=== PATIENT | female | born 1985 | race Caucasian/White ===

== ENCOUNTER 2022-01-17 13:19 | Outpatient (CLI) | payer OTHER, SELFPAY ==
[2022-01-17 22:38] LABS: Chloride* 99 mmol/L (96-114)
[2022-01-17 22:39] LABS: Albumin* 5.4 g/dL (3.3-5.0); Sodium* 136 mmol/L (135-149)
[2022-01-17 22:40] LABS: Potassium* 4.3 mmol/L (3.6-5.1)
[2022-01-17 22:41] LABS: Cholesterol* 181 mg/dL (90-199)
[2022-01-17 22:42] LABS: Alanine Aminotransferase* 19 U/L (4-35); Alkaline Phosphatase* 77 U/L (40-150); Bilirubin Total* 0.6 mg/dL (0.1-1.5); Blood Urea Nitrogen* 13 mg/dL (5-24); Carbon Dioxide* 25 mmol/L (20-32); Creatinine* 0.7 mg/dL (0.5-1.5); Estimated Glomerular Filt Rate 114 ml/min; Glucose* 79 mg/dL (60-115); Total Protein* 8.1 g/dL (6.0-8.3); Triglycerides* 57 mg/dL (40-149)
[2022-01-17 22:43] LABS: HDL Cholesterol* 57 mg/dL (>=50); LDL Cholesterol Calculated 113 mg/dL (<100)
[2022-01-17 23:15] LABS: Aspartate Amino Transferase* 28 U/L (12-35)
[2022-01-17 23:21] LABS: Hepatitis C Virus Antibody* Negative (Negative)
== END 2022-01-17 13:20 | disposition home or self-care (01) ==
PROVIDERS: PCP Physician Assistant Medical; Visit Provider Family Medicine
DX: Z01.419 Encounter for gynecological examination (general) (routine) without abnormal findings (principal); Z13.6 Encounter for screening for cardiovascular disorders; Z11.59 Encounter for screening for other viral diseases
CPT/HCPCS: 80053; 80061; 86803

== ENCOUNTER 2023-02-24 08:43 | Outpatient (CLI) | payer OTHER, SELFPAY | END 2023-02-24 08:44 | disposition home or self-care (01) | LOC: NFLDREF 02-26 07:25 | PROVIDERS: PCP Physician Assistant Medical; Referring Provider Physician Assistant Medical; Visit Provider Registered Nurse | DX: Z51.81 Encounter for therapeutic drug level monitoring (principal) | CPT/HCPCS: 80053 ==

== ENCOUNTER 2024-02-16 08:18 | Outpatient (CLI) | payer OTHER, SELFPAY | END 2024-02-16 08:19 | disposition home or self-care (01) | PROVIDERS: PCP Family Medicine; Visit Provider Family Medicine | DX: Z00.00 Encounter for general adult medical examination without abnormal findings (principal); L70.9 Acne, unspecified; F41.9 Anxiety disorder, unspecified | CPT/HCPCS: 80053 ==

== ENCOUNTER 2024-12-31 15:09 | Outpatient (CLI) | payer OTHER, SELFPAY ==
--- NOTE | 2024-12-31 15:30 | CRLHL7_ITS ---
For Patients: As a result of the 21st Century Cures Act, medical imaging exams and procedure reports are released immediately into your electronic medical record. You may view this report before your referring provider. If you have questions, please contact your health care provider. CLINICAL INDICATION: Peroneal tendinitis. COMPARISON IMAGING STUDIES: Radiographs 11/02/2024. TECHNICAL: Non-contrast MR of the left ankle. Axial, sagittal and coronal T1, PD, PDFS and STIR images. 1.5 Judith MR scanner. FINDINGS: OSSEOUS STRUCTURES: There is an os peroneum which appears abnormal with both sclerosis and internal bone marrow edema. Adjacent soft tissue edema is present. There appears to be a subtle linear defect within the mid aspect of the ossicle on sagittal T1 image number 19 of series 7. an os trigonum is present with mild internal bone marrow edema. No widening of the synchondrosis. JOINT SPACES: The ankle joint space is maintained. There is a small posterior subtalar joint effusion. The talar-navicular and calcaneocuboid joint spaces are maintained. Joint spaces within the visualized midfoot and at the midfoot-forefoot junction are maintained. LIGAMENTS: Syndesmotic Ligaments: The anterior and posterior syndesmotic ligaments are intact. Lateral Ligaments: The anterior talofibular, calcaneofibular and posterior talofibular ligaments are intact. Medial Ligaments: The superficial and deep components of the deltoid ligament complex are maintained. Spring Ligaments: Intact. Lisfranc ligament complex: Intact. TENDONS: Flexor Tendons: The posterior tibial, flexor digitorum longus and flexor hallucis longus tendons are intact. Extensor Tendons: The anterior extensor tendons are intact. Achilles Tendon: Intact. Peroneal Tendons: As above, there is an abnormal os peroneum within the peroneus longus tendon with sclerosis and bone marrow edema. Small linear defect is suspected within the mid ossicle. Adjacent soft tissue edema. Tendinosis of the peroneus longus tendon just proximal to the ossicle. No high-grade tendon tear. The peroneus brevis tendon is intact. TARSAL TUNNEL: The soft tissues of the tarsal tunnel are normal without mass or fluid collection. No abnormality along the course of the medial or lateral plantar nerves. SINUS TARSI: The structures of the sinus tarsi appear normal. No disruption of the interosseous ligaments or significant effacement of fat. PLANTAR SOFT TISSUES: Mild non insertional thickening of the central band of the plantar fascia at the distal calcaneal level. No plantar fascial tear. OTHER FINDINGS: Subcutaneous edema is present. IMPRESSION: 1. Abnormal os peroneum with both sclerosis and internal bone marrow edema. Suspected linear defect which may relate either to sequelae of fracture or bipartite nature. Adjacent soft tissue edema. Tendinosis of the peroneus longus tendon just proximal to the ossicle. 2. Os trigonum with mild internal bone marrow edema but no disruption of its synchondrosis. 3. The ankle joint space and ligaments are intact. 4. Small posterior subtalar joint effusion. 5. Mild non insertional thickening of the proximal central band of the plantar fascia at the distal calcaneal level. Dictated by Mohan Ruiz MD @ 01/03/2025 10:23:53 AM (Electronically Signed)
== END 2024-12-31 15:10 | disposition home or self-care (01) ==
LOC: MRI 15:09
PROVIDERS: PCP Family Medicine; Visit Provider Podiatrist
DX: M76.72 Peroneal tendinitis, left leg (principal); M25.472 Effusion, left ankle
CPT/HCPCS: 73721

== ENCOUNTER 2025-01-20 16:01 | Outpatient (CLI) | payer OTHER, SELFPAY | END 2025-01-20 16:02 | disposition home or self-care (01) | PROVIDERS: PCP Family Medicine; Visit Provider Family Medicine | DX: Z00.00 Encounter for general adult medical examination without abnormal findings (principal) | CPT/HCPCS: 80053; 80061 ==

== ENCOUNTER 2025-02-16 08:47 | Day surgery (SDC) | payer OTHER, SELFPAY ==
[2025-02-16] VITALS (12 sets, daily range): BP systolic 114–132; BP diastolic 66–90; PULSE 75–87; RESP 14–18; TEMP 36.4–37.5; O2SAT 97–99; BMI 34.5
[2025-02-16] MEDS: LACTATED RINGERS 1000 ML 1,000 ML 100 ML IV (09:25)
[2025-02-16] MEDS: SODIUM CHLORIDE 0.9 % (FLUSH) 10 ML SYRINGE IVF (09:25)
--- NOTE | 2025-02-16 10:05 | SUR.PREOP ---
TIME?OUT:?1005 PT/RN/MDA?VERIFICATION?OF?SURGICAL?SITE,?PROCEDURE,?AND?CONSENT OBTAINED?PRIOR?TO?INVASIVE?PROCEDURE.
[2025-02-16] MEDS: MIDAZOLAM HCL 1 MG/ML inj IVP (10:06)
--- NOTE | 2025-02-16 11:10 | P.ANES_ITS ---
Anesthesia Charges Start Date/Time Anesthesia Start Date: 02/16/25 Anesthesia Start Time: 10:24 Stop Date/Time Anesthesia Stop Date: 02/16/25 Anesthesia Stop Time: 11:50 Coding CPT Codes CPT Codes: ANESTH LOWER LEG BONE SURG - 30200 ([id number]) P2 - PATIENT W/MILD SYST DISEASE, QK - NATIONAL SALES CONSULTANT 2-4 CNCRNT ANES PROC, QX - TELECOM NETWORK MANAGER SVC W/ MD MED DIRECTION
--- NOTE | 2025-02-16 11:10 | P.NB_ITS ---
Nerve Block Nerve Block Time Seen by Provider: 10:05 Date Seen: 02/16/25 Type of block requested by surgeon for post-operative analgesia: popliteal Side: left Time out performed: Yes Verification of patient name: Yes Verification of date of : Yes Site marking: site marked Name of person performing procedure: Justin Continuous monitoring Was continuous monitoring of O2 sat, B/P, monitor and storage bin tender, recorded every 15 minutes?: Yes Procedure Checklist: sterile prep, needles and gloves Ultrasound guided. Images saved: Yes Medications given in 5ml increments after negative aspiration: Marcaine %: 0.25 mL: 13 and Exparel mL: 7 Patient tolerated procedure well: Yes Additional comments: Needle noted adjacent to nerve Block Charges Block Charge (with Pro Fee): Sciatic Nerve Use of Ultrasound Machine for Block: Yes- US Guidance/pain block
--- NOTE | 2025-02-16 11:10 | W.ANESCHARGE ---
Anesthesia Charges Start Date/Time Anesthesia Start Date: 02/16/25 Anesthesia Start Time: 10:24 Stop Date/Time Anesthesia Stop Date: 02/16/25 Anesthesia Stop Time: 11:50 Coding CPT Codes CPT Codes: ANESTH LOWER LEG BONE SURG - 75738 ([id number]) P2 - PATIENT W/MILD SYST DISEASE, QK - FLORIST 2-4 CNCRNT ANES PROC, QX - GAS SCRUBBER OPERATOR SVC W/ MD MED DIRECTION
--- NOTE | 2025-02-16 11:11 | P.NB_ITS ---
Nerve Block Nerve Block Time Seen by Provider: 10:05 Date Seen: 02/16/25 Type of block requested by surgeon for post-operative analgesia: adductor canal Side: left Time out performed: Yes Verification of patient name: Yes Verification of date of : Yes Site marking: site marked Name of person performing procedure: Justin Continuous monitoring Was continuous monitoring of O2 sat, B/P, certified novell administrator, recorded every 15 minutes?: Yes Procedure Checklist: sterile prep, needles and gloves Ultrasound guided. Images saved: Yes Medications given in 5ml increments after negative aspiration: Marcaine %: 0.25 mL: 12 Needle gauge: 20 and Exparel mL: 3 Patient tolerated procedure well: Yes Block Charges Block Charge (with Pro Fee): Femoral Nerve Use of Ultrasound Machine for Block: Yes- US Guidance/pain block
--- NOTE | 2025-02-16 11:50 | P.ANES_ITS ---
Anesthesia Charges Start Date/Time Anesthesia Start Date: 02/16/25 Anesthesia Start Time: 10:24 Stop Date/Time Anesthesia Stop Date: 02/16/25 Anesthesia Stop Time: 11:50 Coding CPT Codes CPT Codes: ANESTH LOWER LEG BONE SURG - 59545 ([id number]) P2 - PATIENT W/MILD SYST DISEASE, QK - QUARTER SECTION IRONER 2-4 CNCRNT ANES PROC, QX - RN CARDIAC REHAB SVC W/ MD MED DIRECTION
--- NOTE | 2025-02-16 11:50 | W.ANESCHARGE ---
Anesthesia Charges Start Date/Time Anesthesia Start Date: 02/16/25 Anesthesia Start Time: 10:24 Stop Date/Time Anesthesia Stop Date: 02/16/25 Anesthesia Stop Time: 11:50 Coding CPT Codes CPT Codes: ANESTH LOWER LEG BONE SURG - 76402 ([id number]) P2 - PATIENT W/MILD SYST DISEASE, QK - HVAC RESIDENTIAL SERVICE TECHNICIAN 2-4 CNCRNT ANES PROC, QX - SERVICE WRITER SVC W/ MD MED DIRECTION
--- NOTE | 2025-02-16 11:58 | W.PODPROC_ITS ---
Date of Procedure: 02/16/25 Time Seen by Provider: 11:58 Surgeon: Natalia Odonnell DPM Co-Surgeon: Shankar Sheriff DPM Pre-op Diagnosis: 1. Fracture os peroneum left foot 2. Peroneal tenosynovitis left foot Post-op Diagnosis: 1. Fracture os peroneum left foot 2. Peroneal tenosynovitis left foot Type of Procedure: 1. Excision of os peroneum left foot 2. Peroneus longus tendon transfer left foot 3. Peroneal tendon tenosynovectomy left foot 4. Posterior Splint application left lower extremity Procedure Description: The patient was identified prior to being brought into the operating room using their name and date of as identifiers. The intended surgical care plan was again reviewed in detail with the patient as well as the rationale for the surgery, the most common risks, complications, and expected recovery course. The patient was given the opportunity to ask questions which were answered to the best of our ability. The patient ultimately voiced no questions or concerns and agreed to proceed forward with the surgery as planned. Under mild sedation the patient was brought from the pre-operative holding area to the operating room and placed on the operating table in a supine position. A time out and briefing were performed per operating room protocol to confirm the correct patient, procedure and location. A well padded pneumatic tourniquet was then placed on the operative thigh. The operative lower extremity was then s crubbed, prepped and draped in the normal sterile fashion. The operative lower extremity was then elevated for exsanguination and the tourniquet was inflated to 325 mmHg. A longitudinal incision was made over the peroneal tendon sheath along the lateral aspect of the foot to the distal fibula. Sharp dissection was carried down through the subcutaneous tissues, taking care to protect the sural nerve. This was visible within the inferior incision and the nerve was injected with 0.3cc of 4mg Dex. The peroneal tendon sheath was incised, exposing both the peroneus longus and brevis tendons. Tenosynovitis was identified along the peroneus longus tendon and resected in total. The os peroneum was immediately identified within the peroneus longus tendon and was fragmented. The os peroneum was excised in its entirety, and confirmed with intraoperative fluoro imaging. The surrounding peroneus longus tendon edges were inspected. Approximately 75% of the peroneus longus tendon substance was found to be degenerative or nonviable, with only an estimated 25% of structurally sound tendon remaining. The nonviable tendon tissue was debrided back to healthy, bleeding tendon ends. Given the insufficient remaining tendon for primary repair, attention was turned to reconstructing function through a tendon transfer. The peroneus brevis tendon was exposed and noted to be intact and of good quality. The remaining viable proximal segment of the peroneus longus tendon was laid adjacent to the peroneus brevis tendon in preparation for a [id number]-we-rlyt anastomosis. Using absorbable suture, a series of locking stitches were placed, securing the peroneus longus to the peroneus brevis with excellent coaptation and tension. The repair was tested through passive ankle motion, demonstrating smooth gliding and stable configuration without gapping. The peroneal sheath was repaired loosely to avoid postoperative stenosis. Hemostasis was achieved, the wound was irrigated with sterile saline, and the in cision was closed in layers using absorbable sutures for the deep tissues and nylon for the skin. A postoperative dressing of xeroform, fluff sponges, ABDs, webril, Kerlix and an anthony bandage was applied to the patient's operative lower extremity. A posterior splint was then applied to the patient's operative extremity. The patient appeared to tolerate both the procedure and anesthesia well. The patient was transferred from the operating room to the post anesthesia care unit with vital signs stable and vascular status intact to the operative lower extremity. All sponge and instrument counts were correct at the completion of the surgery as well as prior to closure of deep tissue and skin. Anesthesia: GETA and regional Hemostasis: thigh (56 min ) Estimated blood loss (mL): 15 Provider Operated C-arm: operated mini c for surgical purposes, obtained 1 image and a total of 4 sec of fluoro time Implants: none Specimens: none sent Disposition: same day
--- NOTE | 2025-02-16 12:11 | SUR.OPER ---
0.35mL OF DEXAMETHASONE (4MG/mL) INJECTED INTO THE OPERATIVE SITE BY DR. ARVIZU (@11:20)
[2025-02-16] MEDS: ONDANSETRON 2 MG/ML inj 4 MG IVP (13:00)
--- NOTE | 2025-02-16 13:04 | SUR.PHASEII ---
Patient with PT in SDS room.
== END 2025-02-16 13:31 | disposition home or self-care (01) ==
LOC: OR 08:50
PROVIDERS: PCP Family Medicine; Visit Provider Podiatrist
PROC: (CPT 27675; principal; 2025-02-16 10:15)
DX: S92.812A Other fracture of left foot, initial encounter for closed fracture (principal); M65.872 Other synovitis and tenosynovitis, left ankle and foot; M76.72 Peroneal tendinitis, left leg; G89.18 Other acute postprocedural pain
CPT/HCPCS: 28122; 27680; 27658; 01480; 64445; 64447; 73620; 76000; 76942; 97116; 97161; A9270; J0665; J0666; J0690; J1100; J2250; J2405; J2704; J3010; J7120